=== PATIENT | female | born 1955 | race Caucasian/White ===

== ENCOUNTER 2019-04-08 12:33 | Outpatient (CLI) | payer BC ==
[2016-11-01 10:47] VITALS: BMI 17.9
[~2019-04-08 12:33] MED LIST: BYSTOLIC10 MG PO; BYSTOLIC2.5 MG; CYMBALTA30 MG PO; FAMOTIDINE10 MG; FAMOTIDINE10 MG PO; FLAGYL500 MG PO; GABAPENTIN100 MG; GABAPENTIN100 MG PO; HYDROCODONE-APA1 TAB; HYDROCODONE-APA1 TAB PO; IPRATROPIUM BR21 MCG NASAL; KLONOPIN1 MG PO; LEVAQUIN500 MG PO; LIMBREL 500 MG500 MG; LIMBREL 500 MG500 MG PO; LIPITOR20 MG; LIPITOR80 MG PO; LISINOPRIL2.5 MG; NORVASC5 MG PO; ULTRAM ER300 MG PO; ULTRAM50 MG; VIIBRYD40 MG PO
== END 2019-04-08 23:59 | disposition home or self-care (01) ==
LOC: D.MAMMO 12:33
PROVIDERS: ATTEND Family Medicine
DX: Z00.00 Encounter for general adult medical examination without abnormal findings (principal)

== ENCOUNTER 2020-06-01 08:00 | Outpatient (CLI) | payer BC ==
[2020-01-04 11:43] VITALS: BMI 17.9
[~2020-06-01 08:00] MED LIST changes: +BYSTOLIC5 MG PO; +PROCARDIA10 MG PO
== END 2020-06-01 15:45 | disposition home or self-care (01) ==
LOC: D.MAMMO 08:00
PROVIDERS: ATTEND Family Medicine
DX: Z12.31 Encounter for screening mammogram for malignant neoplasm of breast (principal)